=== PATIENT | female | born 1960 | race Caucasian/White ===

== ENCOUNTER 2019-04-25 20:48 | Observation (INO) ==
[2019-04-25] MEDS ORDERED: NITROGLYCERIN TOP ONE (21:23)
--- NOTE | 2019-04-25 21:43 | Diag Imaging Result Doc PS360 ---
EXAM: CHEST-PORTABLE 04/25/2019 HISTORY: chest pain TECHNIQUE: AP portable at 2145 COMMENT: Considering differences in technique there has been no significant change since 11/10/2018. IMPRESSION: Stable chest. Electronically signed by Chu Villagran 04/25/2019 9:41 PM
[2019-04-25 21:52] LABS: BASO# 0.03 X1000 (0.0-0.2); BASO% 0.3 % (0.0-0.8); EOS# 0.27 X1000 (0.0-0.7); EOS% 2.6 % (0.0-10.0); HEMATOCRIT 37.1 % (37.0-47.0); HEMOGLOBIN 12.3 g/dL (12.0-16.0); IMM GRAN# 0.04 X1000 (0.0-0.04); IMM GRAN% 0.4 % (0.0-0.5); LYMPH# 2.63 X1000 (1.2-3.4); LYMPH% 25.7 % (20.5-51.1); MCH 28.9 PG (27-31); MCHC 33.2 g/dL (33-37); MCV 87.1 FL (81-99); MONO# 0.82 X1000 (0.11-0.59); MPV 10.4 FL (7.4-10.4); NEUT# 6.43 X1000 (1.4-6.5); PLT 211 X1000 (130-400); RBC 4.26 XMIL (4.2-5.4); RDW 13.2 % (11.5-14.5); WBC 10.22 X1000 (4.8-10.8)
[2019-04-25 22:40] LABS: AGAP 12; ALBUMIN 4.3 g/dL (3.5-5.0); ALKALINE PHOSPHATASE 116 U/L (32-104); BUN 10 mg/dL (8-22); CHLORIDE 105 mmol/L (98-107); COSMO 281; CREATININE 0.5 mg/dL (0.5-0.9); ESTIMATED GFR > 60; GLUCOSE 105 mg/dL (70-104); GOT 30 U/L (10-30); GPT 30 U/L (10-36); POTASSIUM 3.4 mmol/L (3.5-5.1); SODIUM 141 mmol/L (136-145); TCO2 24 mmol/L (25-35); TOTAL PROTEIN 6.9 g/dL (6.3-8.3)
--- NOTE | 2019-04-25 22:41 | PROVIDER DOCUMENTATION ---
This chart was entered by Bonifacio Beck Scribe, acting as scribe for Glynn Rich MD. HPI-Chest Pain - General Chief Complaint: Chest Pain Stated Complaint: CHEST PAINS Time Seen by Provider: 04/25/19 21:17 Source: patient Allergies/Adverse Reactions: Patient Allergies Allergy/AdvReac Type Severity Reaction Status Date / Time No Known Allergies Allergy Verified 11/10/18 14:19 Home Medications: Home Medication List Medication Instructions Recorded Confirmed Last Taken Type Aspirin [Aspirin EC] 81 mg PO DAILY 02/03/17 04/25/19 02/03/17 06:00 History 81 MG Carvedilol 3.125 mg PO BID 02/03/17 04/25/19 02/03/17 06:00 History 3.125 MG Insulin NPH Human Isophane 20 units SUBQ DAILY@0630,1730 01/18/18 04/25/19 Unknown History [Novolin N] Insulin Regular, Human [Novolin R] 30 units SUBQ DAILY@0630,1730 01/18/18 04/25/19 Unknown History Omeprazole [Prilosec] 20 mg PO DAILY@0700 09/04/18 04/25/19 Unknown History ATORVAstatin [Lipitor] 40 mg PO QHS #90 tab 09/06/18 04/25/19 Unknown Rx Fluoxetine HCl 1 tab PO DAILY 11/10/18 04/25/19 Unknown History - History of Present Illness-CP Nature of Presenting Problem: Pt is a 58 yof who presents to the ED with a CC of chest pain. Pt states she has had chest pain for two days, describes the pain as heaviness, and rates her pain as a 5/10. Pt states her symptoms are getting worse. Pt states she took a 325 asprin this morning. Pt states she has dyspnea without SOB. Pt reports a hx of diabetes, 2x heart attacks, and 4x cardiac stents. Location: reports: central Chest Pain Radiation: reports: neck Quality of Pain: reports: fullness Severity in ED: mild Onset/Duration: 2 days ago Timing: getting worse Nitro Today/Relief: no nitro taken today Aspirin Treatment Today: 325 mg x 1 Prior Chest Pain/Cardiac Workup: reports: heart attack Similar Symptoms Previously?: No Recently Seen Here or By Another Healthcare Provider: No Review of Systems - Adult - REVIEW OF SYSTEMS - ADULT Constitutional: reports: see HPI Eyes: reports: no symptoms reported Ears, Nose, Mouth & Throat: reports: no symptoms reported Cardiovascular: reports: see HPI, chest pain Respiratory: reports: see HPI, dyspnea on exertion Gastrointestinal: reports: no symptoms reported Genitourinary: reports: no symptoms reported Musculoskeletal: reports: no symptoms reported Integumentary: reports: no symptoms reported Neurological: reports: no symptoms reported Psychiatric: reports: no symptoms reported Endocrine: reports: no symptoms reported Hematologic/Lymphatic: reports: no symptoms reported Allergic/Immunologic: reports: no symptoms reported All Other Systems: Reviewed and Negative Past History - Adult - PAST MEDICAL HISTORY-ADULT Review of Records: reports: Old Records Reviewed, Nursing Assessment Review, Medications Reviewed, Social history reviewed & non-contributory. Major Childhood Illnesses: reports: denies history Cardiovascular: reports: CAD, HTN, NC Respiratory: reports: denies history Gastrointestinal: reports: denies history Obstetrical/Gynecological: reports: denies history Genitourinary: reports: denies history Musculoskeletal: reports: denies history Neurological: reports: denies history Psychiatric: reports: denies history Endocrine/Immune: reports: Diabetes Other Conditions: reports: denies history - PRIOR SURGERIES/PROCEDURES Surgical/Procedure History: reports: cardiac stent, BTL - IMMUNIZATION STATUS Childhood Immunizations: See Nurse Assessment Flu Vaccine: See Nurse Assessment - FAMILY HISTORY Family History: reviewed, not pertinent - SOCIAL HISTORY Smoking: cigarettes, less than 1 pack/day (1/2 ppd) Substance Use: none/never, denies Alcohol Use Frequency: never Physical Exam-General - PHYSICAL EXAM-ADULT Initial Vital Signs Reviewed: Yes - CONSTITUTIONAL General Appearance: alert, mild distress, other (facial erythema) - EYES Eyes: PERRL/EOMI, pink conjunctivae - NECK Neck: non-tender, full range of motion - RESPIRATORY Respiratory: chest non-tender, lungs clear, normal breath sounds, no pleuratic chest pain, no respiratory distress, no accessory muscle use - CARDIOVASCULAR Cardiovascular: normal peripheral pulses, regular rate, rhythm, no edema, no gallop, no JVD, no murmur - GASTROINTESTINAL (ABDOMEN) Abdominal Exam: non tender, soft - MUSCULOSKELETAL Extremity: normal range of motion, non-tender - SKIN Integumentary: warm/dry - NEUROLOGIC Neurologic: grossly normal, no motor/sensory deficits - PSYCHIATRIC Psych/Mental Status: normal mood/affect, normal thought content, normal thought process, oriented x 3 - HEART Score HEART Score: History: Moderately Suspicious HEART Score: ECG: Normal HEART Score: Age: 45-65 Years HEART Score: Risk Factors for Atherosclerotic Disease: > or = 3 Risk Factors or History of Atherosclerotic Disease HEART Score: Troponin: < or = Normal Limit Total HEART Score:: 4 Progress - PLAN OF CARE/RESULTS Progress/Plan/Lab Results: Vital Signs - 8 hr 04/25/19 21:04 Temperature 98.5 F Pulse Rate 80 Respiratory Rate 20 Blood Pressure 141/71 O2 Sat by Pulse Oximetry 97 Laboratory Results - last 24 hr 04/25/19 04/25/19 04/25/19 21:35 21:35 21:35 WBC 10.22 RBC 4.26 Hgb 12.3 Hct 37.1 MCV 87.1 MCH 28.9 MCHC 33.2 RDW Std Deviation 13.2 Plt Count 211 MPV 10.4 Immature Gran % (Auto) 0.4 Neut % (Auto) 63.0 Lymph % (Auto) 25.7 Kemper % (Auto) 8.0 Eos % (Auto) 2.6 Baso % (Auto) 0.3 Immature Gran # (Auto) 0.04 Neut # (Auto) 6.43 Lymph # (Auto) 2.63 Kemper # (Auto) 0.82 H Eos # (Auto) 0.27 Baso # (Auto) 0.03 D-Dimer, Quantitative Sodium Potassium Chloride Carbon Dioxide Anion Gap BUN Creatinine Estimated GFR/1.73 m2 BUN/Creatinine Ratio Glucose Calculated Osmolality Calcium Total Bilirubin AST ALT Alkaline Phosphatase Creatine Kinase 206 H Troponin T < 0.010 Total Protein Albumin Globulin Albumin/Globulin Ratio 04/25/19 04/25/19 21:35 21:35 WBC RBC Hgb Hct MCV MCH MCHC RDW Std Deviation Plt Count MPV Immature Gran % (Auto) Neut % (Auto) Lymph % (Auto) Kem[place] % (Auto) Eos % (Auto) Baso % (Auto) Immature Gran # (Auto) Neut # (Auto) Lymph # (Auto) Kem[place] # (Auto) Eos # (Auto) Baso # (Auto) D-Dimer, Quantitative 0.40 Sodium 141 Potassium 3.4 L Chloride 105 Carbon Dioxide 24 L Anion Gap 12 BUN 10 Creatinine 0.5 Estimated GFR/1.73 m2 > 60 BUN/Creatinine Ratio 20 Glucose 105 H Calculated Osmolality 281 Calcium 9.0 Total Bilirubin 0.30 AST 30 ALT 30 Alkaline Phosphatase 116 H Creatine Kinase Troponin T Total Protein 6.9 Albumin 4.3 Globulin 3.0 Albumin/Globulin Ratio 2.0 Orders Category Date Time Status Cardiac Monitoring DIRECTED Care 04/25/19 21:23 Active CHEST-PORTABLE [RAD] Stat Exams 04/25/19 21:19 Completed CBC WITH ELECTRONIC DIFF [HEME] Stat Lab 04/25/19 21:35 Completed CK PROFILE [SP CHEM] Stat Lab 04/25/19 21:35 Received CMP [COMPREHENSIVE METABOLIC PANEL] [CHEM] Stat Lab 04/25/19 21:35 Received D-DIMER [COAG] Stat Lab 04/25/19 21:35 Completed TROPONIN T Stat Lab 04/25/19 21:35 Completed Nitroglycerin Med 04/25/19 21:23 Discontinued 0.5 inch TOP NOW ONE Oxygen Device Stat Oth 04/25/19 21:23 Active EKG [EKG] Stat Ther 04/25/19 21:18 Ordered Result Diagrams: 04/25/19 21:35 04/25/19 21:35 - EKG 1 Time of EKG reading by physician:: 21:04 EKG Read and Signed by:: Glynn Rich EKG Interpretation (*Must complete 3 of following elements*): Abnormal Rate: 80 Rhythm: NSR [place]: normal QRS: normal ME Interval: normal ST Wave: non-specific ST changes - CONSULTS/PCP/HOSPITALIST Notification #1 *Consult/PCP/Hospitalist*: Dr. Napier, hospitalist Time Discussed: 22:40 Consult Disposition: Admit Departure - Departure Date of Disposition Decision: 04/25/19 Time of Disposition Decision: 22:44 DIAGNOSIS: Chest pain Qualifiers: Chest pain type: unspecified Qualified Code(s): R07.9 - Chest pain, unspecified CAD (coronary artery disease) Qualifiers: Coronary Disease-Associated Artery/Lesion type: unspecified vessel or lesion type [place] vs. transplanted heart: [place] heart Associated angina: with unspecified angina Qualified Code(s): I25.119 - Atherosclerotic heart disease of [place] coronary artery with unspecified angina pectoris Disposition: ADMITTED INPATIENT 09 Certified Medical Emergency: Emergent Condition: Stable Additional Freetext Instructions: ED Follow Up Instructions: You have been treated by a care provider in the Emergency Department. These instructions are being provided to you so you can have an understanding of how to care for yourself upon discharge. Upon discharge from the Emergency Department, you are responsible for making arrangements for follow-up care by a physician of your choice. Take all prescribed medications as directed. Return to the Emergency Department immediately for any new or worsening symptoms. You may call the Physician Referral phone number at [phone] to obtain a list of Physicians who are taking new patients. Referrals and Follow-Ups: Delvin Napier MD [Primary Care Provider] - - Critical Care Note This patient required my direct & personal management of CC.: No Attestation - Physician/ DREW Attestation Patient care was provided by Advanced Practice Provider:: No The physician spent face to face time with patient:: Yes Advanced Practice Provider documentation review:: Supervising physician onsite and consulted in the evaluation and care of this patient. The physician did have a face to face encounter with the patient. This chart was documented by the indicated scribe, (Bonifacio Beck, Hans) and accurately reflects the services I performed and decisions made by me, Glynn Rich MD, as attested by the provider's signature.
[2019-04-25 23:00] LABS: CK INDEX 3.2 (0.0-2.5); CK-MB 6.64 ng/mL (0.0-5.0)
[2019-04-25] MEDS ORDERED: LOVENOX SUBQ ONE (23:47)
[2019-04-26] MEDS: MORPHINE IV PRN (00:35)
--- NOTE | 2019-04-26 01:17 | EKG Report ---
Test Performed on : 04/26/2019 00:50:08 AM Test Reason : pain Blood Pressure : / mmHG Vent. Rate : 074 BPM Atrial Rate : 074 BPM P-R Int : 200 ms QRS Dur : 088 ms QT Int : 434 ms P-R-T Axes : 038 -11 004 degrees QTc Int : 481 ms Normal sinus rhythm. Inferior infarct (cited on or before 10-NOV-2018) Abnormal ECG When compared with ECG of 25-APR-2019 21:03, (Unconfirmed) No significant change was found Unconfirmed Result
--- NOTE | 2019-04-26 01:18 | EKG Report ---
Test Performed on : 04/25/2019 9:03:46 PM Test Reason : chest pain Blood Pressure : / mmHG Vent. Rate : 080 BPM Atrial Rate : 080 BPM P-R Int : 164 ms QRS Dur : 090 ms QT Int : 404 ms P-R-T Axes : 020 -07 010 degrees QTc Int : 465 ms Normal sinus rhythm. Inferior infarct (cited on or before 10-NOV-2018) Abnormal ECG When compared with ECG of 10-NOV-2018 17:04, No significant change was found Unconfirmed Result
--- NOTE | 2019-04-26 05:48 | EKG Report ---
Test Performed on : 04/26/2019 05:09:58 AM Test Reason : pain Blood Pressure : / mmHG Vent. Rate : 074 BPM Atrial Rate : 074 BPM P-R Int : 176 ms QRS Dur : 092 ms QT Int : 432 ms P-R-T Axes : 038 -04 013 degrees QTc Int : 479 ms Normal sinus rhythm. Inferior infarct (cited on or before 10-NOV-2018) Abnormal ECG When compared with ECG of 26-APR-2019 00:50, (Unconfirmed) No significant change was found Confirmed by Tommie Dooley MD ([id number]) on 04/28/2019 9:37:51 PM
[2019-04-26] MEDS ORDERED: MOTRIN PO PRN (10:12)
[2019-04-26] MEDS ORDERED: MOTRIN PO ONE (10:12)
--- NOTE | 2019-04-26 10:40 | HISTORY AND PHYSICAL ---
PRIMARY CARE PROVIDER: Delvin Napier MD. CHIEF COMPLAINT: Chest pain. HISTORY OF PRESENT ILLNESS: Ms. Jacque Leary is a 58-year-old, female with a medical history of coronary artery disease, myocardial infarction, and cardiac stents with the last myocardial infarction being in October of this year. At that time, her only symptom was that she felt like she had pulled a muscle. Apparently, instead, she had a heart attack. She, at that time, had one cardiac stent placed but she also has a history of having three cardiac stents placed in 2014. Today, she states that she has been having chest pain. When she presented last night, it was 5/10. It is currently 3/10. It can be reproduced with chest sternal wall palpation. She is very tender in the sternum location, also across the left chest muscle. Cardiac enzymes are all negative. EKG, there is no obvious ST elevations, no ST depressions. Vital signs are stable. She admits to being constantly on the go, constantly under stress, raising 2 grandchildren and caring for her father with dementia, and also working part time at [employer]. Deals with anxiety and depression. Other symptoms, she states that it will occasionally radiate to the left arm and into the neck but during that time, she also feels like she has a temporal headache with some dizziness and she can feel her heart beat stronger. She has had a mild cough but it is nonproductive. Denies any nausea or shortness of breath. She has also had some heartburn that she said she has had since even prior to her last heart attack in October. It is just more frequent. Denies waking up with acid taste in her mouth or being awakened by sudden reflux at night. No changes in her diet. She states she takes Prilosec for that and that baking soda and water helps with her heartburn. She denies taking any medication to help with the chest pain but she received morphine last night. She states it got rid of her pain completely and she was able to sleep. She is going to be admitted. We will consult cardiology for any further recommendations. Her kidney function looks normal so we may add some ibuprofen to help with the chest wall, sternum pain that can be reproduced with palpation. PAST MEDICAL HISTORY: 1. Anemia. Had to have a blood transfusion when she was at [facility] in October after her heart attack. 2. Diabetes mellitus type 2. Her last hemoglobin A1c was 5.4 and that was back in August of 2018. 3. Hypertension. 4. Coronary artery disease with myocardial infarction x2, once in 2014 and again in October of 2018, with a total of 4 cardiac stents. 5. Arthritis. 6. Anxiety. 7. Depression. 8. Hyperlipidemia. 9. GERD. PAST SURGICAL HISTORY: 1. In 2014, three cardiac stents and in October 2018, one cardiac stent. 2. Bilateral tubal ligation. 3. Oophorectomy x1 ovary. SOCIAL HISTORY: Half pack per day smoker since the age of 17. Only has the occasional use of alcohol. Denies any illicit drug use. 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 Stressors include raising two of her grandchildren and caring for her father with dementia. FAMILY HISTORY: Mother with stroke, dementia, high blood pressure. Father with coronary artery disease with bypass x4, dementia, and his first heart attack was in his 50s. ALLERGIES: No known drug allergies. HOME MEDICATIONS: 1. Lipitor 40 mg p.o. nightly. 2. Coreg 3.125 mg p.o. twice daily. 3. Cyanocobalamin 2500 mcg p.o. daily. 4. Farxiga 10 mg p.o. daily. 5. Trulicity 0.5 mL subcutaneous every 7 days. 6. Fluoxetine 20 mg p.o. daily. 7. Insulin NPH 10 units subcutaneous twice daily. 8. Insulin regular 20 units subcutaneous daily and 10 units at night. 9. Also, she is on isosorbide mononitrate 30 mg p.o. daily. 10. Ferrous sulfate 325 mg p.o. daily. REVIEW OF SYSTEMS: Fourteen point review of systems are complete and all are negative except for those mentioned above in the HPI. PHYSICAL EXAMINATION: VITAL SIGNS: Temperature 97.4 degrees, heart rate 78, respiratory rate 16, blood pressure 108/56, O2 saturation 98% on room air, 5 feet 5 inches tall, 166 pounds, BMI is 27.7. GENERAL: Ms. Jacque Leary is a 58-year-old, female who is in no acute distress. Able to answer questions appropriately. HEENT: Atraumatic, normocephalic. Pupils equal, round, reactive to light. Extraocular movements intact. Mucous membranes are moist. She does have facial rosacea noted. NECK: Trachea midline. CARDIOVASCULAR: S1, S2. Regular rate and rhythm. No rubs, gallops, or murmurs. No lower extremity edema. There are +2 dorsalis and radial pulses. Negative JVD or carotid bruits. PULMONARY: Clear to auscultate bilateral breath sounds. No accessory muscle use or work of breathing noted. GI: Soft, nontender, nondistended. Positive bowel sounds x4. EXTREMITIES: Moves all extremities equally with full range of motion. NEUROLOGIC: A and O x3. Follows commands. Sensory is intact. SKIN: Warm, dry, intact except she has a healing scab over the right great toe which she states happened after getting new shoes. LABORATORY DATA: White blood cells 10,000, hemoglobin 12, hematocrit 37, platelet count 211,000. D-dimer 0.40. Sodium 141, potassium 3.4, BUN 10, creatinine 0.5, glucose 105, calcium 9. Bilirubin 0.30, AST 30, ALT 30. CK 206, troponin is less than 0.01 x3. Albumin 4.3. IMAGING AND EKGS: EKG at around 9 p.m. last night, normal sinus rhythm, rate 80, QTc 465. No ST elevations. EKG at 1 a.m. this morning, normal sinus rhythm, rate 74, QTc 481. No ST elevation. No depressions. At 5 a.m., EKG, normal sinus rhythm, rate 74, QTc 479. No ST elevations. No ST depressions. Then chest x-ray last night was a stable chest. No acute findings. ASSESSMENT AND PLAN: 1. Chest pain with differential diagnosis of costochondritis. The pain was reproducible with palpation of the sternal wall and the left chest but she does have other symptoms such as radiation down the left arm and into the neck, and a history of coronary artery disease with myocardial infarction and stents with most recent being in October of 2018. She is still a current smoker, mildly obese. We will consult cardiology for any further recommendations. She has negative cardiac enzymes x3. No ST elevations on the EKG. No inversions or depressions on the ST segments. Rate is controlled. Vital signs are stable. We will continue her on her Lipitor, Coreg, Farxiga. She did have a 0.5 inch of nitroglycerin paste applied. She had a weight-based Lovenox dose last night close to around midnight. She also got morphine, which relieved her pain at that time. She has got that as-needed. She will also be continued on her Imdur. She also had the last stent October of 2018. If it unclear if this was a drug-eluted or not. I do not see where she is on an antiplatelet at home. 2. Worsening gastroesophageal reflux disease symptoms. Continue her Prilosec 20 mg by mouth daily. Most recently, she had constipation, which was relieved. 3. Diabetes mellitus type 2, well-controlled. She will continue on her Farxiga, her home dosing of insulin. 4. Hyperlipidemia. Continue her statin. 5. Hypertension. Continue the Coreg. 6. Anxiety, depression. Continue her Prozac. 7. Anemia. Apparently, she takes iron at home but she is currently on B12. We will continue that. Dictated by KAYCEE Tapia for Delvin Napier MD cc: KAYCEE Tapia MD
[2019-04-26] MEDS: PROZAC PO SCH (11:55)
[2019-04-26] MEDS: COREG PO SCH ×2 (11:55→21:57)
[2019-04-26] MEDS: NON-FORMULARY MED PO SCH (11:55)
[2019-04-26] MEDS: IMDUR PO SCH (11:55)
[2019-04-26] MEDS: VITAMIN B-12 PO SCH (11:56)
[2019-04-26] MEDS: ASPIRIN PO SCH (11:56)
[2019-04-26] MEDS: HUMALOG (PARKWAY) SUBQ SCH ×3 (12:08→21:58)
[2019-04-26] MEDS ORDERED: PNEUMOVAX 23 IM ONE (17:00)
[2019-04-26] MEDS ORDERED: LOVENOX SUBQ ONE (17:04)
--- NOTE | 2019-04-26 17:36 | CARDIOLOGY CONSULTATION ---
DATE: 04/26/2019 CHIEF COMPLAINT ON PRESENTATION: Chest pain. HISTORY OF PRESENT ILLNESS: Ms Leray is a 58-year-old white female with a history of coronary artery disease, diabetes, continued tobacco use, [id number] NC treated with a plain balloon angioplasty in [place] in October 2018. She presents for evaluation of chest pain that has been going on intermittently for the last 2 days. These episodes are described as a pressure sensation, occasionally radiating up the neck as well as down the left arm, occasionally occurring with exertion, at times at rest. She has had no other associated symptoms with these. She has had occasional headaches, but they do not seem to coordinate with the chest pain. She reports strict compliance with her medications; however, she does continue to smoke. PAST MEDICAL HISTORY: Significant for: 1. Anemia. She has had colonoscopies and EGDs recently, as well as what sounds like a capsule endoscopy over in [place]. I do not have any results of these studies. The patient does report that she has not had any bleeding. 2. History of coronary artery disease/wow-BO-yehasgofg NC. Her last complete cardiac catheterization was performed in October 2018 in [place] at [facility]. That study showed an angiographically normal left main. The left anterior descending had minor luminal irregularities. Circumflex was a large vessel. There was a moderate 50% to 60% stenosis of the ostial left circumflex with mild 40% stenosis of the mid segment. There is a widely patent OM2 stent. There was 99% ostial and 60% proximal stenosis of the first obtuse marginal. This was treated with a plain balloon angioplasty secondary to her a GI bleed issues going on going through evaluation at that time. Her right coronary had a severe 80% stenosis of the proximal segment with patent overlapping stents in the mid RCA. Later, this was treated with a staged intervention at [place] on November 25. At that time, the patient had a 2.75 x 12 mm Ghassan drug-eluting stent placed in the RCA lesion. 3. Diabetes. 4. Hypertension. 5. Hyperlipidemia. 6. Reflux disease. SOCIAL HISTORY: She currently works at [employer]. She does smoke. Occasional alcohol. She is currently raising grandchildren, as well as caring for elderly parents. FAMILY HISTORY: Mother with stroke, dementia, high blood pressure. Father with coronary artery disease as well as bypass as well as dementia. REVIEW OF SYSTEMS: A 10-system review of systems is negative except for those things mentioned in the HPI. PHYSICAL EXAMINATION: Afebrile. Heart rate 73, blood pressure 104/73. Generally, she is in no acute distress.HEENT: Oropharynx is moist. Poor dentition. Eye examination shows pink conjunctivae, white sclerae. Her neck examination shows no obvious thyromegaly or thyroid tenderness. Cardiovascularly, she sounds to be in a regular rate and rhythm. She has no obvious murmurs. She has no S3. She has no lower extremity edema. Her chest exam sounds clear bilaterally. She has no increased work of breathing. Her abdomen is soft, nontender, nondistended. She has no obvious organomegaly. Her skin is warm and dry throughout without any rashes. Neurologically she is moving all extremities well. She has no lateralizing deficits. PERTINENT DATA: She had an EKG performed on presentation showing sinus rhythm. She had no acute ischemic changes. No evidence of Q-waves. It was reviewed by me. Next EKG performed on April 26 at just after midnight: Sinus rhythm. Borderline first-degree AV block. Otherwise no ischemic changes. Final EKG reviewed by me demonstrating sinus rhythm, no signs of acute ischemic changes. Really unchanged from previous. Her chest x-ray is unremarkable. Her lab data shows a white count of 10.2, hematocrit 37, platelet count 211,000. Sodium 141, potassium 3.4, BUN 10, creatinine 0.5. Cardiac enzymes are negative with the exception of a slight elevation in her MB fraction. ASSESSMENT: Ms Leary is a 58-year-old female who presents with continued complaints of chest pain similar to her previous pri-SA-eivedrygx myocardial infarction pain. PLAN: I have discussed the case with [facility]. They have agreed to accept the patient in transfer. She is tentatively plan for cardiac catheterization in the morning. She does not really have any blood pressure room for adjustments in her nitrate or her Coreg. I have given her a 1-time dose Lovenox for this evening, increased her statin therapy, and placed her on Ranexa for long-term treatment. cc: Brock Stout MD
[2019-04-26] MEDS ORDERED: LIPITOR PO SCH ×2 (21:00)
[2019-04-26] MEDS: RANEXA PO SCH (21:58)
[2019-04-27 06:08] LABS: BASO# 0.03 X1000 (0.0-0.2); BASO% 0.4 % (0.0-0.8); EOS# 0.25 X1000 (0.0-0.7); EOS% 3.5 % (0.0-10.0); HEMATOCRIT 39.3 % (37.0-47.0); HEMOGLOBIN 13.1 g/dL (12.0-16.0); IMM GRAN# 0.03 X1000 (0.0-0.04); IMM GRAN% 0.4 % (0.0-0.5); LYMPH# 1.85 X1000 (1.2-3.4); MCH 29.1 PG (27-31); MCHC 33.3 g/dL (33-37); MCV 87.3 FL (81-99); MONO# 0.56 X1000 (0.11-0.59); MONO% 7.9 % (1.7-9.3); MPV 10.6 FL (7.4-10.4); NEUT% 61.8 % (42.2-75.2); PLT 186 X1000 (130-400); RDW 13.1 % (11.5-14.5); WBC 7.12 X1000 (4.8-10.8)
--- NOTE | 2019-04-27 06:20 | EKG Report ---
Test Performed on : 04/27/2019 05:44:02 AM Test Reason : UA Blood Pressure : / mmHG Vent. Rate : 073 BPM Atrial Rate : 073 BPM P-R Int : 184 ms QRS Dur : 090 ms QT Int : 432 ms P-R-T Axes : 011 -01 014 degrees QTc Int : 475 ms Normal sinus rhythm. Inferior infarct (cited on or before 10-NOV-2018) Abnormal ECG When compared with ECG of 26-APR-2019 05:09, (Unconfirmed) No significant change was found Confirmed by Tommie Dooley MD ([id number]) on 04/28/2019 9:37:21 PM
[2019-04-27 06:22] LABS: AGAP 9; BUN 11 mg/dL (8-22); CALCIUM 8.8 mg/dL (8.8-10.2); CHLORIDE 103 mmol/L (98-107); CHOLESTEROL 117 mg/dL (0-200); COSMO 276; CREATININE 0.4 mg/dL (0.5-0.9); ESTIMATED GFR > 60; GLUCOSE 123 mg/dL (70-104); HDL 27 mg/dL (45-65); LDL 47 mg/dL; SODIUM 138 mmol/L (136-145); TCO2 26 mmol/L (25-35); TRIGLYCERIDES 216 mg/dL (35-135); VLDL 43 mg/dL
[2019-04-27 06:29] LABS: PROTIME 13.2 Seconds (11.0-16.0)
[2019-04-27] MEDS: HUMALOG (PARKWAY) SUBQ SCH (06:29)
[2019-04-27 06:30] LABS: INR 0.95
[2019-04-27] MEDS ORDERED: PRILOSEC PO SCH (07:00)
[2019-04-27 07:31] VITALS: BP 117/62
[2019-04-27] MEDS: COREG PO SCH (08:14)
[2019-04-27] MEDS: IMDUR PO SCH (08:14)
[2019-04-27] MEDS: RANEXA PO SCH (08:14)
[2019-04-27] MEDS: ASPIRIN PO SCH (08:14)
[2019-04-27] MEDS: PROZAC PO SCH (08:14)
[2019-04-27] MEDS: NON-FORMULARY MED PO SCH (08:15)
[2019-04-27] MEDS: VITAMIN B-12 PO SCH (08:16)
[2019-04-27] MEDS: MORPHINE IV PRN (08:25)
--- NOTE | 2019-04-28 20:03 | HISTORY AND PHYSICAL ---
ADDENDUM: Patient seen and examined by myself. Full note dictated and discussed with nurse practitioner. Patient presented to the hospital with chest pain. I am going to admit to the hospital, rule out OR, continue to follow. She does have an extensive history of coronary disease. I am going to consult Cardiology and we will follow. cc: Delvin Napier MD
--- NOTE | 2019-04-29 02:30 | DISCHARGE SUMMARY ---
ADMISSION DATE: 04/26/2019 DISCHARGE DATE: 04/27/2019 DISCHARGE DIAGNOSES: 1. Chest pain. 2. Known coronary artery disease. 3. Diabetes. 4. High cholesterol. 5. Depression. CONSULTATIONS: Cardiology. PROCEDURES: None. BRIEF HOSPITAL COURSE: Patient is a 58-year-old female who has a known history of diabetes, high cholesterol and coronary artery disease. She has already had 2 heart attacks and 4 stents. She actually just had a stent I believe in November. We admitted her to the hospital, ruled out for CO. Thankfully, her symptoms have improved although Cardiology agreed that she needs further workup. Therefore, she will be transferred to [facility] for further evaluation and left heart catheterization. Full disposition per them. cc: Delvin Napier MD
== END 2019-04-27 08:50 | disposition short-term general hospital (02) ==
LOC: P.ED 20:48 → P.MEDSURG 20:48 → SUATTDRO 04-26 02:16
PROVIDERS: ADMIT Family Medicine; ATTEND Family Medicine
CPT/HCPCS: 36415; 71010; 71045; 80048; 80053; 80061; 82550; 82553; 82948; 84484; 85025; 85379; 85610; 90732; 93005; 93010; 94761; A9270; J1650; J2270; XXXXX